=== PATIENT | male | born 1990 | race Caucasian/White ===

== ENCOUNTER 2021-04-20 20:50 | Emergency (ER) | payer SELFPAY ==
[~2021-04-20] VITALS: Ht 177.8 cm; Wt 100.0 kg
[2021-04-20 23:35] VITALS: BP 135/86
== END 2021-04-20 23:38 | disposition home or self-care (01) ==
LOC: ER 20:50
DX: T40.1X1A Poisoning by heroin, accidental (unintentional), initial encounter (principal); R55 Syncope and collapse; R06.02 Shortness of breath; F11.129 Opioid abuse with intoxication, unspecified; Y92.012 Bathroom of single-family (private) house as the place of occurrence of the external cause
CPT/HCPCS: 93005; 99283